=== PATIENT | female | born 1955 | race Caucasian/White ===

== ENCOUNTER → 2019-12-17 10:59 | Outpatient (CLI) | payer OTHER, SELFPAY ==
--- NOTE | ~2019-12-17 | MM_ITS ---
EXAMINATION: MM screening thompson BI w neva HISTORY: Screening mammogram TECHNIQUE: Craniocaudal and mediolateral oblique 3-D tomosynthesis images were obtained and synthetic 2-D images were generated. CAD analysis was submitted and interpreted. COMPARISON: 09/10/2018, 08/13/2017, 04/11/2016 bilateral digital screening mammogram examinations BREAST PARENCHYMAL COMPOSITION: The breasts are almost entirely fatty. FINDINGS: Chronic bilateral benign-appearing intramammary lymph node in the axillary tail areas There is no evidence of suspicious mass, calcification, or architectural distortion to suggest malignancy in either breast. There has been no suspicious interval change. IMPRESSION: 1. No mammographic evidence of malignancy. 2. Recommend routine screening mammography in one year. BI-RADS Category 2: Benign finding(s). Reviewed, dictated and finalized at location A.
== END ==
PROVIDERS: PCP Internal Medicine; Visit Provider Nurse Practitioner
DX: Z12.31 Encounter for screening mammogram for malignant neoplasm of breast (principal)
CPT/HCPCS: 77063; 77067

== ENCOUNTER → 2021-06-06 11:00 | Outpatient (CLI) | payer OTHER, SELFPAY ==
--- NOTE | ~2021-06-06 | MM_ITS ---
EXAMINATION: MM screening thompson BI w neva HISTORY: Screening mammogram TECHNIQUE: Craniocaudal and mediolateral oblique 3-D tomosynthesis images were obtained and synthetic 2-D images were generated. CAD analysis was submitted and interpreted. COMPARISON: 12/17/2019, 09/10/2018, 08/13/2017 bilateral screening mammogram examinations BREAST PARENCHYMAL COMPOSITION: The breasts are almost entirely fatty. FINDINGS: Chronic bilateral stable benign-appearing axillary tail lymph nodes. There is no evidence o f suspicious mass, calcification, or architectural distortion to suggest malignancy in either breast. There has been no suspicious interval change. IMPRESSION: 1. No mammographic evidence of malignancy. 2. Recommend routine screening mammography in one year. BI-RADS Category 2: Benign finding(s). Reviewed, dictated and finalized at location A.
== END ==
PROVIDERS: PCP Obstetrics & Gynecology Gynecology; Visit Provider Obstetrics & Gynecology Gynecology
DX: Z12.31 Encounter for screening mammogram for malignant neoplasm of breast (principal)
CPT/HCPCS: 77063; 77067

== ENCOUNTER 2021-08-29 00:28 | Emergency (ER) | payer MEDICARE, SELFPAY ==
--- NOTE | ~2021-08-29 | CT_ITS ---
EXAMINATION: CT facial bones wo con DATE: 08/29/2021 05:40 INDICATION: Face injury. Nose pain. TECHNIQUE: Computed tomography (CT) of the facial bones and maxillofacial region was performed withou t intravenous contrast. Automated exposure control and iterative reconstruction technique were employ ed. The dose-length product was 521.87 mGy-cm. COMPARISON: None. FINDINGS: The orbits are normal. There is mild mucosal thickening in the paranasal sinuses. There is leftward deviation of the nasal septum. There are comminuted fractures of the nasal bones. There are fractures of the right nasal process of maxilla and the anterior nasal septum. IMPRESSION: 1. Fractures of the nasal bones, right nasal process of maxilla, and the anterior nasal septum. Reviewed, dictated and finalized at location A. IMPRESSION: 1. Fractures of the nasal bones, right nasal process of maxilla, and the anteri or nasal septum.
--- NOTE | ~2021-08-29 | XR_ITS ---
EXAMINATION: XR ribs RT 2V w CXR 2V DATE: 08/29/2021 06:01 INDICATION: Rib pain. Fall. TECHNIQUE: Frontal and lateral views of the chest and 2 views on 3 radiographs of the right ribs were obtained. COMPARISON: CT abdomen and pelvis 05/30/2016 FINDINGS: CHEST TWO VIEWS: There is mild atelectasis in the lower lung zones. No pleural effusion or pneumothor ax. Cardiomegaly is noted. There is a lap band in expected position. Surgical clips in the right uppe r quadrant are likely from cholecystectomy. RIGHT RIBS: There is an old healed fracture of right eighth rib. IMPRESSION: 1. No acute rib fracture. 2. Mild atelectasis in the lower lung zones. 3. Cardiomegaly. Reviewed, dictated and finalized at location A.
--- NOTE | ~2021-08-29 | CT_ITS ---
EXAMINATION: CT brain wo con DATE: 08/29/2021 05:40 INDICATION: Face injury. Headache. TECHNIQUE: Computed tomography (CT) of the head was performed without intravenous contrast. The mA wa s adjusted according to patient size. Iterative reconstruction technique was employed. The dose-lengt h product was 605.33 mGy-cm. COMPARISON: None FINDINGS: There is no intracranial hemorrhage, acute infarction, or abnormal intracranial mass lesion . The ventricles are normal in size. The orbits are normal. There are fractures of the nasal bones. T he mastoid air cells are normal. IMPRESSION: 1. Normal brain. 2. Fractures of the nasal bones. Reviewed, dictated and finalized at location A.
[2021-08-29 00:36] VITALS: BP 148/80; PULSE 70; RESP 18; TEMP 36.8; O2SAT 97
[2021-08-29 02:34] VITALS: BP 142/62; PULSE 64; TEMP 36.6; O2SAT 99
[2021-08-29] MEDS: HYDROcodone/acetaminophen (*CRX) 5-325 MG TABLET 1 TAB PO (05:40)
--- NOTE | 2021-08-29 06:29 | ED.HEATRA ---
HPI - Head Injury General Chief complaint: Head Injury Stated complaint: fall, facial injury Time Seen by Provider: 08/29/21 05:18 History of Present Illness HPI Narrative: Patient is a 66-year-old female who presents ER with injury to the nose and head. Patient was walking her dog when she tripped and fell forward striking her face on the ground. Did not lose consciousness. She did strike her forehead and her nose. She is able to breathe through her nose on both sides but there is deformity and bruising. Patient reports she is become increasingly achy in her jaw and her body since the fall. She has some right anterior rib pain inferior to the breast near the midline. No dyspnea. Related Data Allergies Allergy/AdvReac Type Severity Reaction Status Date / Time No Known Allergies Allergy Unverified 08/29/21 05:06 Review of Systems Review of Systems: All systems reviewed & are unremarkable except as noted in HPI and below ENT: Denies nasal congestion Comments: Nasal deformity Cardiovascular: Cardiovascular: Reports chest pain (Chest wall), Denies rapid heart rate and Denies radiating jaw, neck or arm pain Respiratory: Respiratory: Denies cough, Denies dyspnea and Denies wheezing Gastrointestinal: Gastrointestinal: Denies abdominal pain, Denies nausea and Denies vomiting Neurologic: Denies syncope, Reports headache(s), Denies focal weakness and Denies numbness PMFSH Past Medical History Medical History (Updated 08/29/21 @ 06:55 by Vinnie Zelaya MD) Anxiety Depression Hypertension Hypothyroidism Surgical History Surgical History (Updated 08/29/21 @ 06:32 by Vinnie Zelaya MD) History of cholecystectomy History of gastric bypass Social History Social History (Updated 08/29/21 @ 06:32 by Vinnie Zelaya MD) Smoking status: Never smoker Exam Narrative: GENERAL: Well-appearing, well-nourished, and in no acute distress. HEAD: Normocephalic, atraumatic. EYES: PERRL and EOMI. ENT: Mucous membranes moist. Tenderness to the bridge of the nose where there is bruising and deformity with the nasal bones shifted to the right. NECK: Supple. Full range of motion. CHEST: Clear to auscultation. No respiratory distress. Mild tenderness right anterior chest wall inferior to the breast near the midline. HEART: Regular rate and rhythm. Normal peripheral pulses. ABDOMEN: Soft, nontender, nondistended. EXTREMITIES: Normal range of motion. No edema. NEURO: Clear speech, no facial droop. Alert and oriented x3. PSYCH: Normal mood and affect. Course Course Emergency Course: Patient informed of results. Discharge home. Will give plastic surgery and ENT follow-up for further evaluation of nose. Vital Signs Vital signs: Vital Signs Temperature 98.2 F 08/29/21 00:36 Pulse Rate 70 08/29/21 00:36 Respiratory Rate 18 08/29/21 00:36 Blood Pressure 148/80 H 08/29/21 00:36 Pulse Oximetry 97 08/29/21 00:36 Oxygen Delivery Room Air 08/29/21 00:36 Temperature 97.9 F 08/29/21 02:34 Pulse Rate 64 08/29/21 02:34 Respiratory Rate 18 08/29/21 00:36 Blood Pressure 142/62 H 08/29/21 02:34 Pulse Oximetry 99 08/29/21 02:34 Oxygen Delivery Room Air 08/29/21 00:36 MDM - Head Injury Imaging Data Radiologist's impression: ITS Impressions Head CT 08/29/21 06:31 IMPRESSION: 1. Normal brain. 2. Fractures of the nasal bones. Face CT 08/29/21 06:36 IMPRESSION: 1. Fractures of the nasal bones, right nasal process of maxilla, and the anterior nasal septum. Ribs w/Chest X-Ray 08/29/21 07:05 IMPRESSION: 1. No acute rib fracture. 2. Mild atelectasis in the lower lung zones. 3. Cardiomegaly. Discharge Plan Discharge Clinical Impression: Closed fracture nasal bone, Closed fracture of nasal septum Patient Disposition: Home, Self-Care Condition: Stable Instructions: Nasal Fracture (ED) Additional Instructions: Return the ER i
[2021-08-29 07:28] VITALS: BP 146/78; PULSE 68; RESP 15; O2SAT 98
== END 2021-08-29 07:30 | disposition home or self-care (01) ==
PROVIDERS: Emergency Provider Emergency Medicine; PCP Internal Medicine
DX: S02.2XXA Fracture of nasal bones, initial encounter for closed fracture (principal); I10 Essential (primary) hypertension; E03.9 Hypothyroidism, unspecified; W01.0XXA Fall on same level from slipping, tripping and stumbling without subsequent striking against object, initial encounter; Y93.K1 Activity, walking an animal
CPT/HCPCS: 70450; 70486; 71046; 71100; 99284; A9270

== ENCOUNTER → 2021-09-11 11:03 | Outpatient (CLI) | payer MEDICARE, SELFPAY ==
--- NOTE | ~2021-09-11 | DEXA_ITS ---
Bone Density Report Name: DOMINIK BE Age: 66 Sex: Female Ethnicity: White Date of : 1955 Indication: postmenopausal; screening for osteoporosis; height loss; Referring Provider: Robbin, Eloina Study: Bone densitometry was performed. Exam Date: September 11, 2021 Accession number: [id number] Bone Density: Region BMD T-score Z-score Classification AP Spine (L1-L4) 1.038 -0.1 1.7 Normal Femoral Neck (Left) 0.683 -1.5 0.0 Osteopenia Total Hip (Left) 0.916 -0.2 1.0 Normal Femoral Neck (Right) 0.669 -1.6 -0.1 Osteopenia Total Hip (Right) 0.912 -0.2 1.0 Normal Total Hip Mean 0.914 -0.2 1.0 Normal World Health Organization criteria for BMD impression classify patients as: Normal (T-score at or above -1.0), Osteopenia (T-score between -1.0 and -2.5), or Osteoporosis (T-score at or below -2.5). 10-year Fracture Risk(1): Major Osteoporotic Fracture 8.0% Hip Fracture 0.8% Reported Risk Factors: [place] (), Neck BMD=0.669, BMI=43.4 (1) FRAX(R) Version 3.08. Fracture probability calculated for an untreated patient. Fracture probability may be lower if the patient has received treatment. Previous Exams: Region Exam Age BMD T-score BMD Change BMD Change Date g/cm2 vs Baseline vs Previous AP Spine(L1-L4) 09/11/2021 66 1.038 -0.1 -0.090* -0.090* 11/28/2008 53 1.128 0.7 Total Hip(Left) 09/11/2021 66 0.916 -0.2 -0.129* 0.028 08/13/2017 62 0.888 -0.4 -0.157 -0.039* 01/31/2014 58 0.926 -0.1 -0.118 -0.080* 12/28/2011 56 1.007 0.5 -0.038 -0.038 11/28/2008 53 1.045 0.8 Total Hip(Right) 09/11/2021 66 0.912 -0.2 -0.127* 0.000 08/13/2017 62 0.912 -0.2 -0.127 -0.035* 01/31/2014 58 0.947 0.0 -0.092 -0.052* 12/28/2011 56 0.999 0.5 -0.040 -0.040 11/28/2008 53 1.039 0.8 *Denotes significance at 95% confidence level, LSC for AP Spine = 0.022 g/cm2, LSC for Total Hip = 0.027 g/cm2 Clinical Information Provided by Patient: Has used the following medications: Vitamin D Patient maximum height was 64 Menopause Age: 46 No regular weight bearing exercise Does not regularly consume dairy products Drinks caffeinated beverages Onset of menses at age 13 Number of children 2 Impression: The patient has low bone mass, based on
== END ==
PROVIDERS: PCP Internal Medicine; Visit Provider Nurse Practitioner
DX: Z78.0 Asymptomatic menopausal state (principal); Z13.820 Encounter for screening for osteoporosis; M85.851 Other specified disorders of bone density and structure, right thigh; M85.852 Other specified disorders of bone density and structure, left thigh
CPT/HCPCS: 77080

== ENCOUNTER 2021-09-26 15:06 | Outpatient (CLI) | payer MEDICARE, SELFPAY ==
--- NOTE | 2021-09-26 | ECG_ITS ---
Measurements Intervals [place] Rate: 71 P: 47 CT: 165 QRS: -1 QRSD: 93 T: 5 QT: 395 QTc: 429 Interpretive Statements SINUS RHYTHM WITH OCCASIONAL VENTRICULAR PREMATURE COMPLEXES LOW QRS VOLTAGE IN PRECORDIAL LEADS [QRS DEFLECTION < 1.0 mV IN CHEST LEADS] POSSIBLE OLD INFERIOR MYOCARDIAL INFARCTION NO PREVIOUS ECG AVAILABLE FOR COMPARISON Electronically Signed On 09-26-2021 18:39:20 CDT by Misti De La Garza M.D.
[2021-09-26 17:03] LABS: Hemoglobin 13.3 g/dL (12.0-15.0); Mean Corpuscular HGB Conc 30.9 g/dl (32-36); Mean Corpuscular Hemoglobin 29.6 pg (26-34); Mean Corpuscular Volume 95.8 fl (80-100); Mean Platelet Volume 10.1 fl (7.4-10.4); Platelet Count Result 258 k/mm3 (150-375); Red Blood Count 4.49 M/mm3 (4.2-5.4); Red Cell Distribution Width 14.4 % (11.5-14.5); White Blood Count 6.6 K/mm3 (4.5-10.0)
[2021-09-26 17:07] LABS: Hemoglobin A1C 5.4 % (<5.7)
[2021-09-26 17:20] LABS: Alanine Aminotransferase 12 U/L (6-35); Albumin Level 4.2 g/dL (3.5-5.1); Alkaline Phosphatase 118 U/L (38-126); Anion Gap 8 mmol/L (8-16); Aspartate Amino Transferase 21 U/L (14-36); Bilirubin,Total 0.4 mg/dL (0.2-1.3); Blood Urea Nitrogen 24 mg/dL (7-17); Carbon Dioxide 30 mmol/L (22-30); Chloride 99 mmol/L (98-107); Estimated Glomerular Filt Rate > 60; Glucose 102 mg/dL (65-110); Potassium 4.5 mmol/L (3.4-5.0); Sodium 137 mmol/L (137-145)
== END 2021-09-26 15:07 | disposition home or self-care (01) ==
PROVIDERS: PCP Internal Medicine
DX: Z01.818 Encounter for other preprocedural examination (principal); R73.09 Other abnormal glucose; I49.3 Ventricular premature depolarization
CPT/HCPCS: 36415; 80053; 83036; 85027; 93005

== ENCOUNTER → 2022-09-19 12:18 | Outpatient (CLI) | payer MEDICARE, SELFPAY ==
--- NOTE | ~2022-09-19 | MM_ITS ---
EXAMINATION: MM screening thompson BI w neva HISTORY: Screening mammogram TECHNIQUE: Craniocaudal and mediolateral oblique 3-D tomosynthesis images were obtained and synthetic 2-D images were generated. CAD analysis was submitted and interpreted. COMPARISON: June 06, 2021, December 17, 2019, September 10, 2018 bilateral screening mammogram examination s BREAST PARENCHYMAL COMPOSITION: The breasts are almost entirely fatty. FINDINGS: Again noted are multiple axillary tail benign-appearing circumscribed stable lymph nodes. T here is no evidence of suspicious mass, calcification, or architectural distortion to suggest maligna ncy in either breast. There has been no suspicious interval change. IMPRESSION: 1. No mammographic evidence of malignancy. 2. Recommend routine screening mammography in one year. BI-RADS Category 1: Negative Reviewed, dictated and finalized at location A.
== END ==
PROVIDERS: PCP Internal Medicine; Visit Provider Obstetrics & Gynecology Gynecology
DX: Z12.31 Encounter for screening mammogram for malignant neoplasm of breast (principal)
CPT/HCPCS: 77063; 77067

== ENCOUNTER 2023-06-15 17:32 | Observation (INO) | payer MEDICARE, SELFPAY ==
[2023-06-15] VITALS (33 sets, daily range): BP systolic 81–125; BP diastolic 49–98; PULSE 55–168; RESP 11–24; TEMP 36.5–36.6; O2SAT 96–100; BMI 31.5
--- NOTE | ~2023-06-15 | XR_ITS ---
EXAMINATION: XR chest 1V portable DATE: 06/15/2023 18:04 INDICATION: Tachycardia. TECHNIQUE: A single frontal view of the chest was obtained. COMPARISON: Chest 2 views 08/29/2021 FINDINGS: There is mild atelectasis in the lower lung zones. No pleural effusion or pneumothorax. Car diomegaly is noted. There is an old healed right rib fracture. IMPRESSION: 1. Mild atelectasis in the lower lung zones. 2. Cardiomegaly. Reviewed, dictated and finalized at location E.
--- NOTE | 2023-06-15 17:33 | ECG_ITS ---
SEE SCANNED COPY FOR CONFIRMED REPORT. MTDD
[2023-06-15 17:53] LABS: Basophils Absolute Auto 0.1 K/mm3 (0.0-0.1); Basophils Percent Auto 0.6 % (0.2-1.2); Eosinophils Absolute Auto 0.1 K/mm3 (0-0.3); Eosinophils Percent Auto 0.7 % (0-4.4); Hematocrit 45.1 % (37.0-47.0); Hemoglobin 14.7 g/dL (12.0-15.0); Immature Granulocyte Absolute 0.02 K/mm3 (0.00-0.031); Immature Granulocyte Percent A 0.2 % (0-0.5); Lymphocytes Absolute Auto 2.94 K/mm3 (0.9-3.2); Lymphocytes Percent Auto 30.7 % (18.3-44.2); Mean Corpuscular HGB Conc 32.6 g/dl (32-36); Mean Corpuscular Hemoglobin 31.5 pg (26-34); Mean Corpuscular Volume 96.8 fl (80-100); Mean Platelet Volume 9.9 fl (7.4-10.4); Monocytes Absolute Auto 1.3 K/mm3 (0.1-0.6); Monocytes Percent Auto 13.2 % (2.6-8.5); Neutrophils Absolute Auto 5.2 K/mm3 (1.3-6.7); Neutrophils Percent Auto 54.6 % (45.5-73.1); Platelet Count Result 300 k/mm3 (150-375); Red Blood Count 4.66 M/mm3 (4.2-5.4); Red Cell Distribution Width 13.6 % (11.5-14.5); White Blood Count 9.6 K/mm3 (4.5-10.0)
--- NOTE | 2023-06-15 17:54 | ED.CHESTPAIN ---
HPI - Chest Pain General Chief Complaint: Chest Pain <Mary Morocho MD - Last Filed: 06/15/23 19:19> Stated Complaint: chest pain <Mary Morocho MD - Last Filed: 06/15/23 19:19> Time Seen by Provider: 06/15/23 17:43 <Mary Morocho MD - Last Filed: 06/15/23 19:19> Source: patient <Mary Morocho MD - Last Filed: 06/15/23 19:19> Mode of arrival: ambulatory <Mary Morocho MD - Last Filed: 06/15/23 19:19> Limitations: no limitations <Mary Morocho MD - Last Filed: 06/15/23 19:19> History of Present Illness HPI narrative: 68 years old white female came to the ED by private car complaining of chest tightness and fast heartbeat started 1-1/2 hour prior to arrival to the emergency room. Patient denies any dizziness or lightheadedness. History of hyperthyroidism depression anxiety. She denies any fever, chills, nausea, vomiting or shortness of breath or having similar symptoms in the past. <Mary Morocho MD - Last Filed: 06/15/23 19:19> Related Data Allergies/Adverse Reactions: Allergies Allergy/AdvReac Type Severity Reaction Status Date / Time No Known Allergies Allergy Unverified 06/15/23 17:56 <Mary Morocho MD - Last Filed: 06/15/23 19:19> Review of Systems Review of Systems: All systems reviewed & are unremarkable except as noted in HPI and below <Mary Morocho MD - Last Filed: 06/15/23 19:19> [facility] Past Medical History Medical History: Medical History Anxiety Depression Hypertension Hypothyroidism <Mary Morocho MD - Last Filed: 06/15/23 19:19> Surgical History Surgical History: Surgical History History of cholecystectomy History of gastric bypass <Mary Morocho MD - Last Filed: 06/15/23 19:19> Social History Social History: Social History Smoking status: Never smoker <Mary Morocho MD - Last Filed: 06/15/23 19:19> Exam Narrative: General appearance: Well-developed, well-nourished Skin: Normal color Head: Normocephalic, nontraumatic Eyes: Clear conjunctiva ENT: Oropharynx normal, ears normal, nose normal Neck: Supple, nontender Chest and respiratory: Airway patent, no respiratory distress, no accessory muscle use Heart: Tachycardia, regular Abdomen: Soft, nontender, no organomegaly, quiet bowel sounds Vascular: Normal peripheral pulses, normal capillary refill. Musculoskeletal: Normal range of motion, nontender back Neurologic: Alert and oriented ?3, FILTER CLOTH MAKER is normal as tested, no gross motor deficit <Mary Morocho MD - Last Filed: 06/15/23 19:19> Course Course Emergency Course: KEERTHI: signed out to me pending repeat troponins. Troponin elevated. admitted. <Terrance Apple MD - Last Filed: 06/15/23 22:23> Consultations Consultation #1: DR AVINA CHECK SERIAL CARDIAC ENZYME <Mary Morocho MD - Last Filed: 06/15/23 19:19> Date: 06/15/23 <Mary Morocho MD - Last Filed: 06/15/23 19:19> Time: 19:05 <Mary Morocho MD - Last Filed: 06/15/23 19:19> Consultation #2: DR APPLE AT SHIFT CHANGE WAITING FOR SERIAL TROPONIN, POSSIBLE DISCHARGE IF THE TROPONIN LEVELS ARE NORMAL. PATIENT CAME WITH SVT, COMPARED TO NORMAL SINUS RHYTHM AFTER 6 MG OF ADENOSINE IV, CURRENTLY PATIENT IS ASYMPTOMATIC, BLOOD WORKUP SHOWED ELEVATED TSH, PATIENT PROBABLY NONCOMPLIANCE WITH HER MEDICATION. CREATININE IS 1.2 OF UNKNOWN DURATION COMPARED TO 0.82, 2021. PATIENT RECEIVED 1 L OF NORMAL SALINE IV. <Mary Morocho MD - Last Filed: 06/15/23 19:19> Date: 06/15/23 <Mary
--- NOTE | 2023-06-15 17:58 | PC.NURSE ---
17:50 6mg of Adenosine given for HR 167, HR down to 94 after the medication.
[2023-06-15 18:02] LABS: INR 0.9; Prothrombin Time 11.9 Seconds (11.1-14.7)
[2023-06-15 18:03] LABS: Alanine Aminotransferase 14 U/L (6-35); Albumin Level 4.6 g/dL (3.5-5.1); Alkaline Phosphatase 100 U/L (38-126); Anion Gap 6 mmol/L (4-12); Aspartate Amino Transferase 22 U/L (14-36); Bilirubin,Total 0.4 mg/dL (0.2-1.3); Blood Urea Nitrogen 23 mg/dL (7-17); Calcium 10.1 mg/dL (8.4-10.2); Carbon Dioxide 29 mmol/L (22-30); Chloride 106 mmol/L (98-107); Estimated CRCL calculation 42 ml/min; Estimated Glomerular Filt Rate 45; Glucose 146 mg/dL (65-110); Lipase 158 U/L (23-300); Partial Thromboplastin Time 29.9 Seconds (22.3-36.8); Potassium 4.2 mmol/L (3.4-5.0); Sodium 141 mmol/L (137-145)
[2023-06-15] MEDS: ASPIRIN 81 MG CHEWABLE TABLET 324 MG PO (18:06)
[2023-06-15 18:13] LABS: Troponin I 0.026 ng/mL (0.000-0.034)
[2023-06-15] MEDS: SODIUM CHLORIDE 0.9% IV 1,000 ML 999 ML IV CONT (19:38)
--- NOTE | 2023-06-15 20:25 | ECG_ITS ---
SEE SCANNED COPY FOR CONFIRMED REPORT MTDD
[2023-06-15 21:13] LABS: Troponin I 0.208 ng/mL (0.000-0.034)
--- NOTE | 2023-06-15 23:56 | ADMGEN ---
This patient, Monse Hernandez, was admitted to IMU Room 200-01 on06/15/23 at 2353. Patient/family oriented to hospital policies and general routines including ID bracelet, bed and alarms, visiting hours, pain management, procedures, bathroom and other care routines, personal items, smoking policy, room service/diet, and visiting hours. Information on how to activate the Rapid Response Team has been discussed. Patient/Family are encouraged to report perceived risks to care and to ask questions if they do not understand what they are told or what they should do.
[2023-06-16] VITALS: PULSE 56
[2023-06-16 01:10] LABS: Troponin I 0.268 ng/mL (0.000-0.034)
--- NOTE | 2023-06-16 01:47 | PM.IMHP ---
H&P: HPI History of Present Illness Date/Time: 06/16/23 06:20 Chief Complaint: Palpitations and chest tightness Narrative: H&P/discharge summary/short-stay summary 68-year-old female with a past medical history of angina managed by Dr. Scales, hypothyroidism, essential hypertension and depression who was brought in from home by her son due to palpitations and chest tightness. The patient stated that she was busy year than usual preparing food for a get together. Then she realized that she was having palpitation shortly thereafter followed by chest tightness. The symptoms were different than her usual angina which usually is in her left chest and goes down her left arm. She had her Apple watch on charge. She fluid her Apple watch on and it alarmed because her heart rate was in the 160s. She knows that this was a problem because her baseline heart rate is in the 50s. The symptoms persisted for an hour to an hour and half when she decided come to the ER for evaluation. On arrival to the ER EKG demonstrated SVT. She gets received 1 dose of adenosine with immediate conversion to sinus rhythm. She had complete resolution of her symptoms once her rhythm normalized. Her initial troponin was 0.026. The patient's case was discussed with her market gardener who recommended the repeat troponin. With repeat troponins of 0.208. Patient was subsequently admitted to the the IMU for close monitoring. Patient's 3rd troponin did climb to 0.268 but was less of a drastic climb than prior and her repeat this morning was 0.195. Her TSH was noted to be high in the ER. Patient reports that she had run out of refills on her thyroid medications and it took her a couple of months to get into the doctor for refills. She already has an appointment scheduled in 6 weeks for repeat labs. She does report occasional lightheadedness when she stands up too quick. She denies dyspnea on exertion orthopnea, paroxysmal nocturnal dyspnea or lower extremity swelling. Review of Systems Review of Systems: 12 systems were reviewed with pertinent positives and negatives per HPI. Except as documented in the HPI, all other systems were reviewed and are negative. [facility] Past Medical History Medical History (Updated 06/16/23 @ 01:55 by Theodora Carter DO) Anxiety Depression GERD (gastroesophageal reflux disease) Hemorrhoids Hypertension Hypothyroidism Macular degeneration Obstructive sleep apnea Resolved after 100 lb weight loss with lap band in 2010 and gastric sleeve 2021 Surgical History Surgical History (Updated 06/16/23 @ 01:53 by Theodora Carter DO) H/O laparoscopic adjustable gastric banding (~2010) History of bladder suspension procedure (2018) History of cholecystectomy History of colonoscopy with polypectomy History of sleeve gastrectomy (~2021) Family History Family History Mother Hypertension TIA (transient ischemic attack) Liver cancer History of nephrectomy Cancer of kidney Hyperlipidemia Sibling Hypertension Son Diabetes mellitus Depression Anxiety Father Hyperlipidemia Afib Gout Daughter Anxiety Social History Social History (Updated 06/16/23 @ 07:21 by Theodora Carter DO) Social History: Patient is the primary caregiver for her of 46 years who has Parkinson's disease. They raised a daughter and a son. Her son lives with them to help provide cares for her . She is a lifelong nonsmoker and does not drink alcohol or use illicit substances. She is retired guest services officer. Code status: Full code Surrogate decision maker: Bradley Mckay (daughter) Smoking status: Never smoker Second hand tobacco smoke exposure: No Alcohol intake: never Substance use: never Substance use type: does not use Do You Feel Safe in your Home?: Yes Lack of Transportation: No Lack of Food: Never True Current Housing: I Have Housing Concerned Abo
[2023-06-16 02:00] VITALS: PULSE 55
[2023-06-16 04:00] VITALS: BP 100/47; PULSE 52; PULSE 60; RESP 16; TEMP 36.2; O2SAT 100
[2023-06-16 05:03] LABS: Anion Gap 3 mmol/L (4-12); Blood Urea Nitrogen 17 mg/dL (7-17); Calcium 8.7 mg/dL (8.4-10.2); Carbon Dioxide 27 mmol/L (22-30); Chloride 110 mmol/L (98-107); Estimated CRCL calculation 68 ml/min; Estimated Glomerular Filt Rate > 60; Glucose 93 mg/dL (65-110); Potassium 3.9 mmol/L (3.4-5.0); Sodium 140 mmol/L (137-145)
[2023-06-16 05:13] VITALS: PULSE 62
[2023-06-16 05:15] LABS: Troponin I 0.195 ng/mL (0.000-0.034)
[2023-06-16] MEDS: LEVOTHYROXINE SODIUM 88 MCG TABLET PO (06:14)
[2023-06-16 07:50] VITALS: BP 119/60; PULSE 52; RESP 16; TEMP 36.1; O2SAT 98
[2023-06-16 08:05] VITALS: O2SAT 97
--- NOTE | 2023-06-16 17:56 | ECG_ITS ---
SEE SCANNED COPY FOR CONFIRMED REPORT MTDD
== END 2023-06-16 08:25 | disposition home or self-care (01) ==
LOC: ANHED 22:21 → ANHIMU 22:49
PROVIDERS: Emergency Medicine; Admitting Provider Internal Medicine; Emergency Provider Emergency Medicine; PCP Internal Medicine; Visit Provider Internal Medicine
DX: I47.10 Supraventricular tachycardia, unspecified (principal); N17.9 Acute kidney failure, unspecified; R79.89 Other specified abnormal findings of blood chemistry; E03.9 Hypothyroidism, unspecified; I10 Essential (primary) hypertension; K21.9 Gastro-esophageal reflux disease without esophagitis; F41.9 Anxiety disorder, unspecified; F32.A Depression, unspecified; Z98.84 Bariatric surgery status
CPT/HCPCS: 36415; 71045; 80048; 80053; 83690; 84443; 84484; 85025; 85610; 85730; 93005; 96360; 96361; 99285; A9270; G0378; J7030

== ENCOUNTER 2024-01-21 12:47 | Outpatient (CLI) | payer MEDICARE, SELFPAY ==
--- NOTE | ~2024-01-21 | MM_ITS ---
EXAMINATION: MM screening thompson BI w neva HISTORY: Screening TECHNIQUE: Craniocaudal and mediolateral oblique 3-D tomosynthesis images were obtained and synthetic 2-D images were generated. CAD analysis was submitted and interpreted. COMPARISON: Comparison to multiple prior studies sequentially, with oldest reviewed study dated 04/11. BREAST PARENCHYMAL COMPOSITION: Not dense: There are scattered areas of fibroglandular density. FINDINGS: There is no evidence of suspicious mass, calcification, or architectural distortion to sugg est malignancy in either breast. There has been no suspicious interval change. IMPRESSION: 1. No mammographic evidence of malignancy. 2. Recommend routine screening mammography in one year. BI-RADS Category 1: Negative Reviewed, dictated and finalized at location B. [employer] MANAGER
== END 2024-01-21 12:48 | disposition home or self-care (01) ==
LOC: MICIMG 12:47
PROVIDERS: PCP Internal Medicine; Visit Provider Nurse Practitioner
DX: Z12.31 Encounter for screening mammogram for malignant neoplasm of breast (principal)
CPT/HCPCS: 77063; 77067

== ENCOUNTER 2025-01-24 13:21 | Outpatient (CLI) | payer MEDICARE, SELFPAY ==
--- NOTE | ~2025-01-24 | DEXA_ITS ---
Bone Density Report Name: DOMINIK BE Age: 69 Sex: Female Ethnicity: White Date of : 1955 Indication: postmenopausal; screening for osteoporosis; parental hip fracture; height loss; Referring Provider: SHA AKHTAR Study: Bone densitometry was performed. Exam Date: January 24, 2025 Accession number: [id number] Bone Density: Region BMD T-score Z-score Classification AP Spine(L1, L2, L4) 0.928 -1.0 1.0 Normal Femoral Neck (Left) 0.648 -1.8 -0.1 Osteopenia Total Hip (Left) 0.777 -1.4 0.1 Osteopenia Femoral Neck (Right) 0.569 -2.5 -0.8 Osteoporosis Total Hip (Right) 0.807 -1.1 0.3 Osteopenia Total Hip Mean 0.792 -1.3 0.2 Osteopenia World Health Organization criteria for BMD impression classify patients as: Normal (T-score at or above -1.0), Osteopenia (T-score between -1.0 and -2.5), or Osteoporosis (T-score at or below -2.5). 10-year Fracture Risk: FRAX not reported because: Some T-score for Spine Total or Hip Total or Femoral Neck at or below -2.5 Previous Exams: -- Region Exam Age BMD T-score BMD Change BMD Change Date g/cm2 vs Baseline vs Previous -- AP Spine (L1-L2,L4) 01/24/2025 69 0.928 -1.0 -16.8%# -8.0%# 09/11/2021 66 1.008 -0.2 -9.6%* -9.6%* 11/28/2008 53 1.115 0.7 Total Hip(Left) 01/24/2025 69 0.777 -1.4 -25.6%# -15.2%# 09/11/2021 66 0.916 -0.2 -12.4%* 3.2%# 08/13/2017 62 0.888 -0.4 -15.1%# -4.2%* 01/31/2014 58 0.926 -0.1 -11.3%# -8.0%* 12/28/2011 56 1.007 0.5 -3.6%# -3.6%# 11/28/2008 53 1.045 0.8 Total Hip(Right) 01/24/2025 69 0.807 -1.1 -22.4%# -11.6%# 09/11/2021 66 0.912 -0.2 -12.2%* 0.0%# 08/13/2017 62 0.912 -0.2 -12.2%# -3.7%* 01/31/2014 58 0.947 0.0 -8.9%# -5.2%* 12/28/2011 56 0.999 0.5 -3.9%# -3.9%# 11/28/2008 53 1.039 0.8 -- *Denotes significance at 95% confidence level, LSC for AP Spine = 0.022 g/cm2, LSC for Total Hip = 0.027 g/cm2 Rate of change results reflect vertebral levels common to all scans # Denotes dissimilar scan types or analysis methods Clinical Information Provided by Patient: Parent has had a hip fracture Has used the following medications: Vitamin D Patient maximum height was 64 Menopause Age: 46 No regular weight bearing exercise Drinks caffeinated beverages Onset of menses at age 13 Number of children 2 Impression: The patient has osteoporosis, based on the Right Femoral Neck T-score. The patient has risk factors, including: parental hip fracture. Unable to evaluate interval change due to the use of different scan modes. Discussion: INCREASED RISK OF FRACTURE. BONE DENSITY IS UNDESIRABLY LOW AT ONE OR MORE SKELETAL SITES, CONSISTENT WITH POSTMENOPAUSAL OSTEOPOROSIS. This patient's lowest T-score meets the World Health Organization's (WHO) criteria for osteoporosis at one or more sites (T-score -2.5 or below). In untreated patients, the risk of osteoporotic fracture increases approximately two-fold for each 1.0 SD decrease in T-score. Low bone density is not the only risk factor for fracture; also consider factors such as patient's age, frailty or poor health, risk of falling, risk of injury, previous osteoporotic fracture, family history of osteoporosis, cigarette smoking, low body weight, etc. Not everyone with low bone mineral density has osteoporosis; osteomalacia and other metabolic bone disorders should also be considered. Patients who have osteoporosis should be evaluated for specific diseases and conditions (secondary causes) that may cause or contribute to bone loss. The [place] [employer]ocrin[employer] (AACE) and National Osteoporosis Foundation (NOF) recommend pharmacologic intervention for all postmenopausal women whose T-score is in this range. The patient should follow a healthful lifestyle (good nutrition with adequate calcium and vitamin D, and appropriate weight-bearing exercise). Follow-Up: Consider a repeat BMD and Vertebral Fracture Assessment (VFA) exam in 2 years or sooner if medically necessary, to reassess this patient's status. Reported by: JILLIAN on 01/24/2025 1:56:00 PM. Reviewed, dictated and finalized at location A.
--- NOTE | ~2025-01-24 | MM_ITS ---
EXAMINATION: MM screening thompson BI w neva HISTORY: Screening. TECHNIQUE: Craniocaudal and mediolateral oblique 3-D tomosynthesis images were obtained and synthetic 2-D images were generated. CAD analysis was submitted and interpreted. COMPARISON: 2023, 2022, and 2021 BREAST PARENCHYMAL COMPOSITION: Not Dense: There are scattered areas of fibroglandular FINDINGS: A pacing device obscures a portion of the left axilla. No suspicious masses are seen. There are no suspicious calcifications. No unexplained architectural distortion is seen. There are no skin or nipple abnormalities identified. There is no adenopathy seen on the images submitted. IMPRESSION: No mammographic or sonographic evidence to suggest malignancy is seen. The patient may return to screening mammography as per ACR guidelines. BI-RADS 1 - Negative. Reviewed, dictated and finalized at location B. OR DATA ANALYST IMPRESSION: No mammographic or sonographic evidence to suggest malignancy is seen. The lucia ent may return to screening mammography as per ACR guidelines. BI-RADS 1 - Negative.
== END 2025-01-24 13:22 | disposition home or self-care (01) ==
LOC: MICIMG 13:22
PROVIDERS: PCP Internal Medicine; Visit Provider Obstetrics & Gynecology Gynecology
DX: Z12.31 Encounter for screening mammogram for malignant neoplasm of breast (principal); M81.0 Age-related osteoporosis without current pathological fracture; M85.89 Other specified disorders of bone density and structure, multiple sites; Z78.0 Asymptomatic menopausal state; Z13.820 Encounter for screening for osteoporosis
CPT/HCPCS: 77063; 77067; 77080